=== PATIENT | male | born 1995 | race Caucasian/White ===

== ENCOUNTER 2020-01-16 09:56 | Outpatient (CLI) | payer OTHER, SELFPAY | END 2020-01-16 09:57 | disposition home or self-care (01) | LOC: ANHBWCLAB 09:59 | PROVIDERS: PCP Family Medicine; Visit Provider Family Medicine | DX: R19.8 Other specified symptoms and signs involving the digestive system and abdomen (principal) | CPT/HCPCS: 87070; 87075; 87076; 87205 ==

== ENCOUNTER 2021-12-30 08:00 | Outpatient (CLI) | payer OTHER, SELFPAY ==
[2021-12-30 20:08] LABS: Hematocrit 43.6 % (42.0-52.0); Hemoglobin 14.5 g/dL (14.0-18.0); Mean Corpuscular HGB Conc 33.3 g/dl (32-36); Mean Corpuscular Hemoglobin 28.7 pg (26-34); Mean Corpuscular Volume 86.3 fl (80-100); Mean Platelet Volume 10.9 fl (7.4-10.4); Platelet Count Result 288 k/mm3 (150-375); Red Blood Count 5.05 M/mm3 (4.6-6.20); Red Cell Distribution Width 13.8 % (11.5-14.5); White Blood Count 10.9 K/mm3 (4.5-10.0)
[2021-12-30 20:23] LABS: Alanine Aminotransferase 26 U/L (4-50); Albumin Level 4.6 g/dL (3.5-5.1); Alkaline Phosphatase 102 U/L (38-126); Anion Gap 6 mmol/L (8-16); Aspartate Amino Transferase 28 U/L (17-59); Bilirubin,Total 0.5 mg/dL (0.2-1.3); Blood Urea Nitrogen 14 mg/dL (9-20); Calcium 9.8 mg/dL (8.4-10.2); Carbon Dioxide 26 mmol/L (22-30); Chloride 104 mmol/L (98-107); Cholesterol 175 mg/dL (0-200); Estimated Glomerular Filt Rate > 60; Glucose 110 mg/dL (65-110); HDL Direct 47 mg/dL; Potassium 4.2 mmol/L (3.4-5.0); Sodium 136 mmol/L (137-145); Triglycerides 150 mg/dL (<150)
[2021-12-30 20:34] LABS: LDL Cholesterol Direct 102 mg/dL
[2021-12-30 20:41] LABS: Hemoglobin A1C 5.5 % (<5.7)
== END 2021-12-30 08:01 | disposition home or self-care (01) ==
PROVIDERS: PCP Family Medicine; Visit Provider Family Medicine
DX: Z00.00 Encounter for general adult medical examination without abnormal findings (principal); E66.9 Obesity, unspecified
CPT/HCPCS: 36415; 80053; 80061; 83036; 85027

== ENCOUNTER 2022-09-15 17:26 | Emergency (ER) | payer BC, SELFPAY ==
[2022-09-15 17:32] VITALS: BP 160/92; PULSE 112; RESP 16; TEMP 37.4; O2SAT 98
--- NOTE | 2022-09-15 17:39 | ED.NAVMDI ---
HPI - Nausea/Vomiting/Diarrhea General Chief complaint: Nausea/Vomiting/Diarrhea Stated complaint: diarrhea, abdominal cramps, indigestion Time Seen by Provider: 09/15/22 17:30 Source: patient and RN notes reviewed Mode of arrival: ambulatory Limitations: no limitations History of Present Illness HPI Narrative: 27-year-old male presents concern for diarrhea. He reports diarrhea started yesterday. Reports stomach cramping with diarrhea. Reports less diarrhea stools a day. Reports some nausea without vomiting. He reports belching and indigestion. He denies fever, bodies, chills, sweats. He denies bloody diarrhea MD elicited complaint: nausea and diarrhea Related Data Allergies Allergy/AdvReac Type Severity Reaction Status Date / Time No Known Drug Allergies Allergy Unknown Unknown Verified 09/15/22 17:41 Review of Systems Review of Systems: CONSTITUTIONAL: Reports malaise. Denies chills, sweats, or fever. ENT: Denies rhinorrhea, congestion, sinus pain, otalgia or sore throat. CARDIOVASCULAR: Denies chest pain, palpitations, or edema. RESPIRATORY: Denies cough or dyspnea. GASTROINTESTINAL: Denies abdominal pain, vomiting Reports abdominal cramping, nausea, diarrhea. Denies bloody, or mucous stools. GENITOURINARY: Denies dysuria or hematuria. MUSCULOSKELETAL: Denies myalgia. NEUROLOGIC: Denies headache. All systems reviewed & are unremarkable except as noted in HPI and below PMFSH Family History Family History Grandparent Diabetes mellitus Acute myocardial infarction Family history of malignant neoplasm Mother Family history of bipolar disorder Social History Social History (Updated 01/16/20 @ 09:18 by Vannessa Bean [facility]) Smoking packs per day: 0.5 Smoking cigarettes per day: 10.0 Years smoked: 11 Smoking pack-years: 5.50 Smoking status: Current every day smoker Second hand tobacco smoke exposure: Yes Alcohol intake: never Substance use: never Comments At time of signature, agree with nursing past medical, surgical, social and family history. There is no relevant family history pertinent to the presenting complaint Exam Narrative: GENERAL: Well-appearing, well-nourished, and in no acute distress. HEAD: Normocephalic, atraumatic. EYES: PERRLA, conjunctivae clear, and EOMI. ENT: Mucous membranes moist. NECK: Supple. No lymphadenopathy CHEST: Speaks in full sentences. No respiratory distress. HEART: Regular rate and rhythm. ABDOMEN: Obese, nontender SKIN: Warm, dry, no rash. NEURO: Alert and oriented x3. PSYCH: Normal mood and affect Course Course Emergency Course: Patient is aware of diagnosis, understands and agrees to treatment plan. Anticipatory guidance given. Patient agrees to follow-up as directed and is aware of reasons to seek care at the emergency department. Portions of this record may have been created with voice recognition software Level of Care: Express Care Visit Vital Signs Vital signs: Vital Signs Temperature 99.3 F 09/15/22 17:32 Pulse Rate 112 H 09/15/22 17:32 Respiratory Rate 16 09/15/22 17:32 Blood Pressure 160/92 H 09/15/22 17:32 Pulse Oximetry 98 09/15/22 17:32 Oxygen Delivery Room Air 09/15/22 17:32 Temperature 99.3 F 09/15/22 17:32 Pulse Rate 112 H 09/15/22 17:32 Respiratory Rate 16 09/15/22 17:32 Blood Pressure 160/92 H 09/15/22 17:32 Pulse Oximetry 98 09/15/22 17:32 Oxygen Delivery Room Air 09/15/22 17:32 Reviewed. MDM - Nausea/Vomiting/Diarrhea MDM Narrative Medical decision making narrative: Exam findings show no acute concerns or changes; patient is non-toxic appearing and is in no distress. Patient is appropriate for outpatient treatment and follow-up. Differential Diagnosis Differential diagnosis: Likely traveler's diarrhea, food poisoning, gastroenteritis, clostridium difficile infection and dehydration Critical Care Time Critical Car
== END 2022-09-15 17:32 | disposition home or self-care (01) ==
PROVIDERS: Emergency Provider Nurse Practitioner; PCP Family Medicine
DX: R19.7 Diarrhea, unspecified (principal); F17.210 Nicotine dependence, cigarettes, uncomplicated
CPT/HCPCS: 99213; G0463

== ENCOUNTER 2023-12-08 10:36 | Outpatient (CLI) | payer OTHER, SELFPAY ==
[2023-12-08 19:36] LABS: Hematocrit 43.6 % (42.0-52.0); Hemoglobin 14.3 g/dL (14.0-18.0); Mean Corpuscular HGB Conc 32.8 g/dl (32-36); Mean Corpuscular Hemoglobin 28.4 pg (26-34); Mean Corpuscular Volume 86.7 fl (80-100); Mean Platelet Volume 10.9 fl (7.4-10.4); Platelet Count Result 268 k/mm3 (150-375); Red Blood Count 5.03 M/mm3 (4.6-6.20); Red Cell Distribution Width 13.5 % (11.5-14.5); White Blood Count 11.6 K/mm3 (4.5-10.0)
[2023-12-08 19:43] LABS: Alanine Aminotransferase 25 U/L (6-50); Albumin Level 3.8 g/dL (3.5-5.1); Alkaline Phosphatase 96 U/L (38-126); Anion Gap 5 mmol/L (8-16); Aspartate Amino Transferase 37 U/L (17-59); Bilirubin,Total 0.3 mg/dL (0.2-1.3); Blood Urea Nitrogen 10 mg/dL (9-20); Calcium 8.9 mg/dL (8.4-10.2); Carbon Dioxide 28 mmol/L (22-30); Chloride 105 mmol/L (98-107); Cholesterol 163 mg/dL (0-200); Estimated Glomerular Filt Rate > 60; Glucose 97 mg/dL (65-110); HDL Direct 47 mg/dL; Potassium 4.2 mmol/L (3.4-5.0); Sodium 138 mmol/L (137-145); Triglycerides 147 mg/dL (<150)
[2023-12-08 19:55] LABS: LDL Cholesterol Direct 95 mg/dL
[2023-12-08 20:52] LABS: Hemoglobin A1C 5.5 % (<5.7)
== END 2023-12-08 10:37 | disposition home or self-care (01) ==
PROVIDERS: PCP Nurse Practitioner Adult Health; Visit Provider Nurse Practitioner Adult Health
DX: Z13.9 Encounter for screening, unspecified (principal); Z79.899 Other long term (current) drug therapy; J01.00 Acute maxillary sinusitis, unspecified; E66.9 Obesity, unspecified; R19.8 Other specified symptoms and signs involving the digestive system and abdomen
CPT/HCPCS: 36415; 80053; 80061; 83036; 84443; 85027

== ENCOUNTER 2024-07-05 10:19 | Outpatient (CLI) | payer OTHER, SELFPAY ==
[2024-07-05 19:37] LABS: Basophils Absolute Auto 0.1 K/mm3 (0.0-0.1); Basophils Percent Auto 0.9 % (0.2-1.2); Eosinophils Absolute Auto 0.4 K/mm3 (0-0.3); Eosinophils Percent Auto 3.4 % (0-4.4); Hematocrit 44.4 % (42.0-52.0); Hemoglobin 14.6 g/dL (14.0-18.0); Immature Granulocyte Absolute 0.04 K/mm3 (0.00-0.031); Immature Granulocyte Percent A 0.4 % (0-0.5); Lymphocytes Percent Auto 30.9 % (18.3-44.2); Mean Corpuscular HGB Conc 32.9 g/dl (32-36); Mean Corpuscular Hemoglobin 28.9 pg (26-34); Mean Corpuscular Volume 87.9 fl (80-100); Monocytes Absolute Auto 0.8 K/mm3 (0.1-0.6); Neutrophils Absolute Auto 6.5 K/mm3 (1.3-6.7); Neutrophils Percent Auto 57.4 % (45.5-73.1); Platelet Count Result 285 k/mm3 (150-375); Red Blood Count 5.05 M/mm3 (4.6-6.20); Red Cell Distribution Width 14.4 % (11.5-14.5); White Blood Count 11.3 K/mm3 (4.5-10.0)
[2024-07-05 19:53] LABS: Alanine Aminotransferase 24 U/L (6-50); Albumin Level 4.5 g/dL (3.5-5.1); Alkaline Phosphatase 88 U/L (38-126); Anion Gap 12 mmol/L (4-12); Aspartate Amino Transferase 55 U/L (17-59); Bilirubin,Total 0.3 mg/dL (0.2-1.3); Blood Urea Nitrogen 17 mg/dL (9-20); Calcium 9.9 mg/dL (8.4-10.2); Carbon Dioxide 26 mmol/L (22-30); Chloride 99 mmol/L (98-107); Cholesterol 184 mg/dL (0-200); Estimated Glomerular Filt Rate > 60; Glucose 98 mg/dL (65-110); HDL Direct 50 mg/dL; Potassium 4.6 mmol/L (3.4-5.0); Sodium 137 mmol/L (137-145); Triglycerides 178 mg/dL (<150)
[2024-07-05 20:05] LABS: LDL Cholesterol Direct 102 mg/dL
[2024-07-05 20:07] LABS: Hemoglobin A1C 5.7 % (<5.7)
[2024-07-05 20:11] LABS: Free T4 Free Thyroxine 1.01 ng/mL (0.78-2.19)
== END 2024-07-05 10:20 | disposition home or self-care (01) ==
PROVIDERS: PCP Nurse Practitioner Adult Health; Visit Provider Nurse Practitioner Adult Health
DX: Z13.9 Encounter for screening, unspecified (principal)
CPT/HCPCS: 36415; 80053; 80061; 83036; 84439; 84443; 85025

== ENCOUNTER 2024-09-20 10:24 | Outpatient (CLI) | payer OTHER, SELFPAY | END 2024-09-20 10:25 | disposition home or self-care (01) | LOC: ANHBWCLAB 10:25 | PROVIDERS: PCP Nurse Practitioner Adult Health; Visit Provider Nurse Practitioner Adult Health | DX: R20.2 Paresthesia of skin (principal) | CPT/HCPCS: 36415; 82607 ==

== ENCOUNTER 2025-08-28 07:56 | Outpatient (CLI) | payer BC, SELFPAY ==
--- OUTSIDE RECORDS SUMMARY | 2025-08-28 08:05 | XMS_ITS | Clinical Summary ---
Author Organization [facility] Address [address] [place] [address] Care Team Providers Care Car Painter Name Role Phone Unavailable Primary Care Provider Unavailabl e Source Comments [facility],non-owned Affiliates and Associated Physician Practices is amultiple site organization consisting of ambulatory clinics and hospital sitesin [place], [place], [place] and [place]. This disclosure is being madepursuant to the Care Everywhere program and may not contain all information available regarding this patient. Last updated 18.[employer] [facility] Allergies No known active allergies Medications * Be aware that medications may not be up to date on this document. Alwaysverify current medications with the patient. cephalexin (KEFLEX) 500 MG capsule Take 1 capsule by mouth 4 times daily 28 capsule 01/26/2019 Active Immunizations Immunization Administration Dates Next Due TDAP (7yrs+) 01/26/2019 Social History Tobacco Use Types Packs/Day Years Used Date Smoking Tobacco: Every Day Cigarettes Alcohol Use Standard Drinks/Week Comments Yes 0 (1 standard drink = 0.6 oz pur e alcohol) Xiang Sex and Gender Information Value Date Recorded Sex Assigned at Not on file Legal Sex Male 5:35 AM COLLECTIONS DIRECTOR Gender Identity Not on file Sexual Orientation Not on file Last Filed Vital Signs Vital Sign Reading Time Taken Comments Blood Pressure 150/91 01/26/2019 7:12 AM COLLECTIONS DIRECTOR Pulse 89 01/26/2019 7:12 AM COLLECTIONS DIRECTOR Temperature 36.9 C (98.4 F) 01/26/2019 7:12 AM COLLECTIONS DIRECTOR Respiratory Rate 18 01/26/2019 7:12 AM COLLECTIONS DIRECTOR Oxygen Saturation 97% 01/26/2019 7:12 AM COLLECTIONS DIRECTOR Inhaled Oxygen Concentration - - Weight 158.8 kg (350 lb) 01/26/2019 7:12 AM COLLECTIONS DIRECTOR Height 180.3 cm (5' 11) 01/26/2019 7:12 AM COLLECTIONS DIRECTOR Body Mass Index 48.82 01/26/2019 7:12 AM COLLECTIONS DIRECTOR Plan of Treatment Health Maintenance Due Date Last Done Comments HIV SCREENING 2008 HEPATITIS C SCREENING 01/02/2011 HEPATITIS B VACCINE (1 of 3 - 19+ 3-dose series) 2012 HPV VACCINE (1 - 3-dose SCDM series) 2020 DEPRESSION SCREENING 11/29/2024 COVID-19 VACCINE (1 - 2023-2 5 season) 2025 INFLUENZA VACCINE (#1) 2025 DTAP/TDAP/TD VACCINES (2 - T d or Tdap) 01/26/2029 01/26/2019 ZOSTER VACCINE (1 of 2) 2043 HIB VACCINE Aged Out No longer eligi ble based on patient's age to complete this topic MENINGOCOCCAL (Group B) VACC INE SHARED DECISION-MAKING Aged Out No longer eligibl e based on patient's age to complete this topic MENINGOCOCCAL GROUPS A/C/Y/W VACCINE Aged Out No longer eligible b ased on patient's age to complete this topic PNEUMOCOCCAL VACCINE Aged Out No long er eligible based on patient's age to complete this topic Insurance TP [employer] LIABILITY Republican Liability [employer] PAYOR GENERIC
--- OUTSIDE RECORDS SUMMARY | 2025-08-28 08:05 | XMS_ITS | Clinical Summary ---
Author Organization [facility] Address [address] [place] [address] Care Team Providers Care Marketing Automation Specialist Name Role Phone Juan Yasmin ALLISON Primary Care Provider [phone] Allergies No known active allergies Medications guaiFENesin (ROBITUSSIN) syrup 100 mg/5 mL Take 5-10 mL (100-200 mg total) by mouth every 4 (four) hours as needed for cough 60 mL 4 Active Additional Information Patient not taking.Reported on 03/28/2025 albuterol HFA (PROVENTIL HFA,VENTOLIN HFA,PROAIR HFA) 90 mcg/actuation inhaler Inhale 2 puffs every 4 (four) hours as needed for wheezing 18 g 1 4 Active lisinopriL (PRINIVIL,ZESTR IL) 20 mg tablet Take 1 tablet (20 mg total) by mouth daily 4 Active Active Problems Problem Noted Date Diagnosed Date Enlargement of neck 03/26/2016 Overview (03/04/2017): Fullness of neck Morbid obesity 03/06/2016 Overview (03/05/2017): Obesity, morbid, BMI 40.0-49.9 Abscess of buttock 04/14/2014 Overview (03/05/2017): Gluteal abscess Tic 04/14/2014 Overview (03/05/2017): Tic Adjustment disorder with anxious mood 04/14/2014 Overview (03/05/2017): ADJ REACT-ANXIOUS MOOD Encounters Date Type Department Care Team Description 06/04/2025 12:09 AM CDT - 06/04/2025 1:00 AM CDT Emergency [facility] Emergency Department [address] [place] [address] Demi Koeing MD Foreign body in left foot, initial encounter (Primary Dx) Discharge Disposition: Discharge to home or self care from Last 3 Months Immunizations Immunization Administration Dates Next Due Tdap 06/04/2025 Surgical History Surgery Date Site/Laterality Comments TONSILLECTOMY Tonsillectomy Medical History Medical History Date Comments Hx Other Medical 2006 dental surgery Family History Medical History Relation Name Comments Migraines Father 2 Migraine; Other Father 2 Healthy; Other Mother 2 Healthy; Cancer Other Family history of Cancer; Diabetes Other Family history of Diabetes mellitus; Relation Name Status Comments Father 1 Alive Father 2 Mother 1 Alive Mother 2 Other Social History Tobacco Use Types Packs/Day Years Used Date Smoking Tobacco: Former Cigarettes Q uit: 01/28/2024 Tobacco Cessation:Counseling Given: Not Answered Comments:Smoking History Packs/day: 1 Packs Alcohol Use Standard Drinks/Week Comments Not Currently 0 (1 standard drink = 0.6 oz pur e alcohol) Personal Safety Answer Date Recorded Have you ever been in or are you currently in a harmful physical or emotional relationship or is someone making you feel afraid or unsafe? Denies 06/04/2025 Sex and Gender Information Value Date Recorded Sex Assigned at Not on file Legal Sex Male 9:45 AM RESIDENT SERVICES MANAGER Gender Identity Not on file Sexual Orientation Not on file Obstetrics History Last Filed Vital Signs Vital Sign Reading Time Taken Comments Blood Pressure 160/91 06/04/2025 12:07 AM CDT Pulse 78 06/04/2025 12:06 AM CDT Temperature 36.3 C (97.4 F) 06/04/2025 12:06 AM CDT Respiratory Rate 18 06/04/2025 12:06 AM CDT Oxygen Saturation 96% 06/04/2025 12:07 AM CDT Inhaled Oxygen Concentration - - Weight 167.8 kg (370 lb) 06/04/2025 12:06 AM CDT Height 182.9 cm (6') 06/04/2025 12:06 AM CDT Body Mass Index 50.18 06/04/2025 12:06 AM CDT Plan of Treatment Health Maintenance Due Date Last Done Comments Depression Screening 1993 Hepatitis C Screening 1993 Varicella Vaccines (2 of 2 - 2-dose childhood series) 08/15/1998 05/23/1998 Regular Well Visit/Exam 18-64 2011 HPV Vaccines (1 - 3-dose SCDM series) 2020 Influenza Vaccine (#1) 2025 DTaP/Tdap/Td Vaccine (8 - Td or Tdap) 06/04/2035 06/04/2025, 01/26/2019, 11/19/1997, Additional history exists Hepatitis B Screening Completed 1993 , 1995, 1995 Pneumococcal vaccine <65 Aged Out No longer eligible based on patient's age to complete this topic Procedures Procedure Name Priority Date/Time Associated Diagnosis Comments XR FOOT LEFT 2 VIEWS ED 06/04/2025 12:41 AM CDT [place] REMOVAL FOREIGN BODY FOOT SUBCUTANEOUS Routine 06/04/2025 12:39 AM CDT from Last 3 Months Results * XR Foot Left 2 Views (06/04/2025 12:41 AM CDT) Anatomical Region Laterality Modality Lower Extremities, Foot Left Computed Radiography 06/04/2025 12:4 8 AM CDT Narrative 06/04/2025 12:53 AM CDT EXAM DESCRIPTION: XR FOOT LEFT 2 VIEWS REASON FOR STUDY: foriegn body Post Images - ER Dr. Koenig removed object from foot Tonight in ER. C/o foreign body in L foot. Pt was walking in his living room and stepped on an unknown FO Tonight. Unsuccessful at removing himself at home. TECHNIQUE: 2 radiographic view(s) of the left foot . COMPARISON: None FINDINGS: BONES/JOINTS: There is no acute fracture, malalignment or osseous abnormality. The joint spaces are normal. SOFT TISSUES: Within normal limits. IMPRESSION: No acute osseous abnormality. No radiopaque foreign body is seen. THIS IS AN ELECTRONICALLY VERIFIED FINAL REPORT 06/04/2025 12:53 AM - Electronically signed by Herson CARRERO: MAGAN Report ID: [id number] Reading Location: [id number] Procedure Note Herson Boyd MD - 06/04/2025 EXAM DESCRIPTION: XR FOOT LEFT 2 VIEWS REASON FOR STUDY: foriegn body Post Images - ER Dr. Koenig removed object from foot Tonight in ER. C/o foreign body in L foot. Pt was walking in his living room and stepped anahi unknown FO Tonight. Unsuccessful at removing himself at home. TECHNIQUE: 2 radiographic view(s) of the left foot . COMPARISON: None FINDINGS: BONES/JOINTS: There is no acute fracture, malalignment or osseousabnormality. The joint spaces are normal. SOFT TISSUES: Within normal limits. IMPRESSION: No acute osseous abnormality. No radiopaque foreign body is seen. THIS IS AN ELECTRONICALLY VERIFIED FINAL REPORT 06/04/2025 12:53 AM - Electronically signed by Herson Boyd M.D. KH: MAGAN Report ID: [id number] Reading Location: [id number] Demi Koenig MD IMG XR PROCEDURES Final Result * WA REMOVAL FOREIGN BODY FOOT SUBCUTANEOUS (06/04/2025 12:39 AM CDT) Narrative Demi Koenig MD - 06/04/2025 12:39 AM CDT Demi Koenig MD 06/04/2025 12:44 AM Foreign Body Removal Date/Time: 06/04/2025 12:39 AM Performed by: Demi Koenig MD Authorized by: Demi Koenig MD [place] Protocol: RN Notified of Procedure: yes Informed consent: Risks, benefits, alternatives discussed Patient's stated name/ matches armband: Yes and patient unable to verbalize - armband matched to name and within medical record Allergies confirmed: yes Consent form signed, dated, timed; matches correct patient, intended procedure and site: Yes Location: Location: Foot Foot location: L top foot (left lateral foot) Depth: Subcutaneous Tendon involvement: None Pre-procedure details: Imaging: None Neurovascular status: intact Preparation: Patient was prepped and draped in usual sterile fashion Anesthesia (see MAR for exact dosages): Anesthesia method: Local infiltration Local anesthetic: Lidocaine 1% WITH epi Procedure type: Procedure complexity: Simple Procedure details: Scalpel size: 10 (no scalpel used) Localization method: Visualized Dissection of underlying tissues: no Bloodless field: no Foreign bodies recovered: 1 Intact foreign body removal: yes Post-procedure details: Neurovascular status: intact Confirmation: No additional foreign bodies on visualization Skin closure: None Dressing: Open (no dressing) Patient tolerance of procedure: Tolerated well, no immediate complications Demi Koenig MD IN CLINIC/BEDSIDE ORDERABLES Fin al Result from Last 3 Months Insurance [facility] Care Teams Marketing Automation Specialist Relationship Specialty Start Date End Date Yasmin Martinez NP [address] [place] [id number] PCP - General Nurse Practitioner 09/14/24
[2025-08-28 19:17] LABS: Hematocrit 43.8 % (42.0-52.0); Hemoglobin 14.0 g/dL (14.0-18.0); Immature Granulocyte Percent A 0.3 % (0-0.5); Lymphocytes Absolute Auto 3.45 K/mm3 (0.9-3.2); Mean Corpuscular HGB Conc 32.0 g/dl (32-36); Mean Corpuscular Hemoglobin 28.0 pg (26-34); Mean Corpuscular Volume 87.6 fl (80-100); Nucleated Red Blood Cells Absolute Auto 0.000 K/mm3 (0.0-0.012); Nucleated Red Blood Cells Perc 0.0 % (0.0-0.2); Platelet Count Result 302 k/mm3 (150-375); Red Blood Count 5.00 M/mm3 (4.6-6.20); White Blood Count 12.0 K/mm3 (4.5-10.0)
[2025-08-28 19:49] LABS: Alanine Aminotransferase 28 U/L (6-50); Albumin Level 4.6 g/dL (3.5-5.1); Alkaline Phosphatase 99 U/L (38-126); Anion Gap 10 mmol/L (4-12); Aspartate Amino Transferase 64 U/L (17-59); Bilirubin,Total 0.4 mg/dL (0.2-1.3); Blood Urea Nitrogen 18 mg/dL (9-20); Calcium 9.6 mg/dL (8.4-10.2); Carbon Dioxide 25 mmol/L (22-30); Chloride 101 mmol/L (98-107); Cholesterol 192 mg/dL (0-200); Estimated Glomerular Filt Rate > 60; Glucose 83 mg/dL (65-110); HDL Direct 53 mg/dL; Potassium 4.7 mmol/L (3.4-5.0); Sodium 136 mmol/L (137-145); Total Protein 7.8 g/dL (6.3-8.2); Triglycerides 117 mg/dL (<150)
[2025-08-28 19:57] LABS: Troponin I < 0.012 ng/mL (0.000-0.034)
== END 2025-08-28 07:57 | disposition home or self-care (01) ==
LOC: ANHBWCLAB 07:57
PROVIDERS: PCP Family Medicine; Visit Provider Family Medicine
DX: Z00.00 Encounter for general adult medical examination without abnormal findings (principal); F41.9 Anxiety disorder, unspecified; F32.A Depression, unspecified; I10 Essential (primary) hypertension; E66.9 Obesity, unspecified; R20.2 Paresthesia of skin; R42 Dizziness and giddiness; Z84.81 Family history of carrier of genetic disease
CPT/HCPCS: 36415; 80053; 80061; 82172; 84484; 85025

== ENCOUNTER 2025-09-05 11:13 | Outpatient (CLI) | payer BC, SELFPAY ==
--- NOTE | ~2025-09-05 | XR_ITS ---
XR_[id number]_CR Indication: R07.9 - Chest pain, unspecified, NUMBNESS TO ARMS Comparison: None Findings: The vertebral heights are intact. No fracture or subluxation. The disc heights are intact. Soft tissues unremarkable Impression: No acute abnormality. Reviewed, dictated and finalized at location P. Impression: No acute abnormality.
--- NOTE | 2025-09-05 11:33 | ECG_ITS ---
Test Date: 2025-09-05 11:46:57 Measurements Intervals [place] Rate: 102 P: 21 NJ: 139 QRS: 20 QRSD: 94 T: 29 QT: 311 QTc: 405 Interpretive Statements SINUS TACHYCARDIA DELAYED PRECORDIAL R/S TRANSITION BORDERLINE ECG No previous ECG available for comparison Electronically Signed On 09-05-2025 12:26:49 CDT by González Potts D.O.
== END 2025-09-05 11:14 | disposition home or self-care (01) ==
LOC: ANHCARD 11:20
PROVIDERS: PCP Family Medicine; Visit Provider Family Medicine
DX: R94.31 Abnormal electrocardiogram [ECG] [EKG] (principal); R00.2 Palpitations; R07.9 Chest pain, unspecified; M54.2 Cervicalgia
CPT/HCPCS: 72040; 93005

== ENCOUNTER 2025-10-01 09:27 | Outpatient (CLI) | payer BC, SELFPAY ==
--- NOTE | 2025-10-01 09:55 | EST_ITS ---
Patient Info Name: Kieran Mueller Age: 30 years : 1995 Gender: Male Ht: 72 in Wt: 400 lbs BSA: 3.14 m2 HR: 62 bpm BP: 146 / 72 mmHg Exam Date: 10/01/2025 9:55 AM Patient Status: O Admit Date: 10/01/2025 Exam Type: CA stress test treadmill A treadmill exercise stress test was performed. Staff Attending Provider: González Potts DO Exercise Technologist: Keyla Martinez Exercise Physician: González Potts DO Summary 1. 1. Negative Matt exercise stress test for ischemic ST changes by ECG criteria. 2. 2. Reduced functional capacity, achieving 5.7 METs of workload. 3. 3. Baseline hypertension. 4. 4. Rapid HR response to exercise. 5. 5. Appropriate HR recovery at 1 minute post exercise. 6. 6. No imaging with stress testing. 7. 7. Patient informed of the above results. Protocol: Matt Stress ECG Details Stage: REST Duration (min): 0 min : 59 sec Speed (mph): 0.0 Grade (%): 0 HR (bpm): 61 SBP (mmHg): 146 DBP (mmHg): 72 METS: --- Stage: REST Duration (min): 3 min : 12 sec Speed (mph): 0.0 Grade (%): 0 HR (bpm): 83 SBP (mmHg): 146 DBP (mmHg): 72 METS: --- Stage: STAGE 1 Duration (min): 1 min : 0 sec Speed (mph): 1.7 Grade (%): 10 HR (bpm): 140 SBP (mmHg): 146 DBP (mmHg): 72 METS: --- Stage: STAGE 1 Duration (min): 2 min : 0 sec Speed (mph): 1.7 Grade (%): 10 HR (bpm): 154 SBP (mmHg): 146 DBP (mmHg): 72 METS: --- Stage: STAGE 1 Duration (min): 3 min : 0 sec Speed (mph): 1.7 Grade (%): 10 HR (bpm): 163 SBP (mmHg): 145 DBP (mmHg): 88 METS: --- Stage: STAGE 2 Duration (min): 0 min : 30 sec Speed (mph): 2.5 Grade (%): 12 HR (bpm): 157 SBP (mmHg): 145 DBP (mmHg): 88 METS: --- Stage: RECOVERY Duration (min): 0 min : 29 sec Speed (mph): 0.0 Grade (%): 0 HR (bpm): 168 SBP (mmHg): 145 DBP (mmHg): 88 METS: --- Stage: RECOVERY Duration (min): 1 min : 29 sec Speed (mph): 0.0 Grade (%): 0 HR (bpm): 137 SBP (mmHg): 145 DBP (mmHg): 88 METS: --- Stage: RECOVERY Duration (min): 2 min : 29 sec Speed (mph): 0.0 Grade (%): 0 HR (bpm): 125 SBP (mmHg): 145 DBP (mmHg): 88 METS: --- Stage: RECOVERY Duration (min): 3 min : 29 sec Speed (mph): 0.0 Grade (%): 0 HR (bpm): 121 SBP (mmHg): 174 DBP (mmHg): 77 METS: --- Stage: RECOVERY Duration (min): 4 min : 29 sec Speed (mph): 0.0 Grade (%): 0 HR (bpm): 101 SBP (mmHg): 174 DBP (mmHg): 77 METS: --- Stage: RECOVERY Duration (min): 5 min : 29 sec Speed (mph): 0.0 Grade (%): 0 HR (bpm): 108 SBP (mmHg): 179 DBP (mmHg): 73 METS: --- Stage: RECOVERY Duration (min): 6 min : 29 sec Speed (mph): 0.0 Grade (%): 0 HR (bpm): 104 SBP (mmHg): 179 DBP (mmHg): 73 METS: --- Stage: RECOVERY Duration (min): 7 min : 29 sec Speed (mph): 0.0 Grade (%): 0 HR (bpm): 103 SBP (mmHg): 159 DBP (mmHg): 76 METS: --- Stage: RECOVERY Duration (min): 8 min : 29 sec Speed (mph): 0.0 Grade (%): 0 HR (bpm): 115 SBP (mmHg): 159 DBP (mmHg): 76 METS: --- Stage: RECOVERY Duration (min): 9 min : 5 sec Speed (mph): 0.0 Grade (%): 0 HR (bpm): 120 SBP (mmHg): 122 DBP (mmHg): 76 METS: --- Rest HR: 83 bpm Peak HR: 170 bpm Rest Sys BP: 146 mmHg Peak Sys BP: 179 mmHg Max Pred HR: 188 bpm % Max Pred HR: 90 % Target HR: 160 bpm Max RPP: 30,430 bpm*mmHg Soler Score: -6 Termination Reason: Reached target heart rate or workload Cardiac Symptoms: Shortness of breath Max ST Seg Deviation: 1.90 mm Total Time: 3 min : 30 sec Rest Sims BP: 72 mmHg Peak Sims BP: 73 mmHg Angina Score: None Total METS: 5.6 Resting ECG Sinus rhythm. Stress ECG No ST changes. Arrhythmias None. Report Signatures
--- OUTSIDE RECORDS SUMMARY | 2025-10-01 10:13 | XMS_ITS | Clinical Summary ---
Author Organization [facility] [employer] Address [address] [place] [address] Care Team Providers Care Head Mixer Name Role Phone Unavailable Primary Care Provider Unavailabl e Source Comments [facility] [employer],non-[facility] Affiliates and Associated Physician Practices is amultiple site organization consisting of ambulatory clinics and hospital sitesin [place], [place], [place] and [place]. This disclosure is being madepursuant to the Care Everywhere program and may not contain all information available regarding this patient. Last updated 18.[employer] Allergies No known active allergies Medications * [...] on file Legal Sex Male 5:35 AM RUG FRAME MOUNTER Gender Identity Not on file Sexual Orientation Not on file Last Filed Vital Signs Vital Sign Reading Time Taken Comments Blood Pressure 150/91 01/26/2019 7:12 AM RUG FRAME MOUNTER Pulse 89 01/26/2019 7:12 AM RUG FRAME MOUNTER Temperature 36.9 C (98.4 F) 01/26/2019 7:12 AM RUG FRAME MOUNTER Respiratory Rate 18 01/26/2019 7:12 AM RUG FRAME MOUNTER Oxygen Saturation 97% 01/26/2019 7:12 AM RUG FRAME MOUNTER Inhaled Oxygen Concentration - - Weight 158.8 kg (350 lb) 01/26/2019 7:12 AM RUG FRAME MOUNTER Height 180.3 cm (5' 11) 01/26/2019 7:12 AM RUG FRAME MOUNTER Body Mass Index 48.82 01/26/2019 7:12 AM RUG FRAME MOUNTER Plan of Treatment Health Maintenance Due Date [...] to complete this topic Insurance TP [employer] [place] [employer] Republican Liability [employer] PAYOR GENERIC
--- OUTSIDE RECORDS SUMMARY | 2025-10-01 10:13 | XMS_ITS | Clinical Summary ---
Author Organization [facility] Address [address] [place] [address] Care Team Providers Care Projector Operator Name Role Phone Yasmin Martinez NP Primary Care Provider [phone] Allergies No known active allergies Medications guaiFENesin [...] Encounters Date Type Department Care Team Description 09/04/2025 10:43 AM CDT - 09/04/2025 11:48 AM CDT Emergency [facility] Emergency Department [address] [place] [address] Chest pain, unspecified type (Primary Dx); Acute pain of left shoulder Discharge Disposition: Discharge to home or self [...] making you feel afraid or unsafe? 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[employer] Gender Identity Not on file Sexual Orientation Not on file Last Filed Vital Signs Vital Sign Reading Time Taken Comments Blood Pressure 136/77 09/04/2025 10:37 AM CDT Pulse 84 09/04/2025 10:37 AM CDT Temperature 36.9 C (98.5 F) 09/04/2025 8:20 AM CDT Respiratory Rate 16 09/04/2025 10:37 AM CDT Oxygen Saturation 97% 09/04/2025 10:37 AM CDT Inhaled Oxygen Concentration - - [...] Procedure Name Priority Date/Time Associated Diagnosis Comments TROPONIN T HIGH-SENSITIVITY 2-HOUR Timed 09/04/2025 10:47 AM CDT XR SHOULDER LEFT 2 OR MORE VIEWS ED 09/04/2025 9:50 AM CDT XR CHEST 1 VIEW ED 09/04/2025 9:50 AM CDT EGFR STAT 09/04/2025 8:26 AM CDT DIFFERENTIAL AUTO STAT 09/04/2025 8:2 6 AM CDT MAGNESIUM STAT 09/04/2025 8:26 AM CDT THYROID FUNCTION CASCADE Routine 09/04/2025 8:26 AM CDT TROPONIN T HIGH-SENSITIVITY SERIES (BASELINE, 2HR, 4HR, 6HR) STAT 09/04/2025 8:26 AM CDT COMPREHENSIVE METABOLIC PANEL STAT 09/04/2025 8:26 AM CDT CBC WITH AUTO DIFFERENTIAL STAT 09/04/2025 8:26 AM CDT ECG 12-LEAD STAT 09/04/2025 8:21 AM CDT from Last 3 Months Results * Troponin T high-sensitivity 2-hour (09/04/2025 10:47 AM CDT) Trop T hs <6 <=22 ng/L [facility] ([place]) Comment: Interpretive Data For further hscTnT resources including the diagnostic algorithm and an aid in interpretation, copy and paste this link: https://nrl.testcatalog.org/show/hsTrop Current Interpretive Data last revised 2020. Trop T hs delta 0 ng/L [facility] ([place]) Trop T hs interp Insignificant [facility] ([place]) Blood 09/04/2025 10:4 7 AM CDT 09/04/2025 10:50 AM CDT Naty Yan MD LAB BLOOD ORDERABLES Amanda l Result [facility] ([place]) 1 [facility] [place] [address] * XR Chest 1 Vw Portable (If patient hemodynamically UNstable or UNable to ambulate) (09/04/2025 9:50AM CDT) Anatomical Region Laterality Modality Body, Chest N/A Computed Radiogr aphy 09/04/2025 9:56 AM CDT Narrative 09/04/2025 9:57 AM CDT EXAM DESCRIPTION: XR CHEST 1 VIEW REASON FOR STUDY: chest pain Pt ED via POV. 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 COMPARISON: 09/14/2024 FINDINGS: The heart, mediastinum, and pulmonary vasculature are grossly unremarkable. There is no definite evidence of a pneumothorax. There is no definite evidence of focal consolidation or pleural effusion. The osseous structures are acutely grossly stable. IMPRESSION: 1. No acute cardiopulmonary abnormality. THIS IS AN ELECTRONICALLY VERIFIED FINAL REPORT 09/04/2025 9:57 AM - Electronically signed by Arlen Wing D.O. PS: PS Report ID: [id number] Reading Location: [id number] Procedure Note Arlen Wing, DO - 09/04/2025 EXAM DESCRIPTION: XR CHEST 1 VIEW REASON FOR STUDY: chest pain Pt ED via POV. 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 COMPARISON: 09/14/2024 FINDINGS: The heart, mediastinum, and pulmonary vasculature are grosslyunremarkable. There is no definite evidence of a pneumothorax. There is no definite evidence of focal consolidation or pleural effusion. The osseous structures are acutely grossly stable. IMPRESSION: 1. No acute cardiopulmonary abnormality. THIS IS AN ELECTRONICALLY VERIFIED FINAL REPORT 09/04/2025 9:57 AM - Electronically signed by Arlen Wing D.O. PS: PS Report ID: [id number] Reading Location: [id number] Naty Yan MD IMG XR PROCEDURES Final R esult * XR Shoulder Left 2 or More Views (09/04/2025 9:50 AM CDT) Anatomical Region Laterality Modality Upper Extremities, Shoulder Left Comp uted Radiography 09/04/2025 9:57 AM CDT Narrative 09/04/2025 9:57 AM CDT EXAM DESCRIPTION: XR SHOULDER LEFT 2 OR MORE VIEWS REASON FOR STUDY: pain Pt ED via POV. 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 COMPARISON: None FINDINGS: There is no definite evidence acute displaced fracture or dislocation involving the left shoulder. Of the left acromioclavicular and glenohumeral intervals are grossly well maintained. The visualized soft tissues are grossly unremarkable. IMPRESSION: 1. No definite evidence of acute displaced fracture or dislocation involving the left shoulder. If clinical symptoms persist, then follow-up radiographs in 7-10 days is recommended. THIS IS AN ELECTRONICALLY VERIFIED FINAL REPORT 09/04/2025 9:57 AM - Electronically signed by Arlen Wing D.O. PS: PS Report ID: [id number] Reading Location: [id number] Procedure Note Arlen Wing, DO - 09/04/2025 EXAM DESCRIPTION: XR SHOULDER LEFT 2 OR MORE VIEWS REASON FOR STUDY: pain Pt ED via POV. 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 COMPARISON: None FINDINGS: There is no definite evidence acute displaced fracture or dislocation involving the left shoulder. Of the left acromioclavicular andglenohumeral intervals are grossly well maintained. The visualized soft tissues are grossly unremarkable. IMPRESSION: 1. No definite evidence of acute displaced fracture or dislocationinvolving the left shoulder. If clinical symptoms persist, then follow-upradiographs in 7-10 days is recommended. THIS IS AN ELECTRONICALLY VERIFIED FINAL REPORT 09/04/2025 9:57 AM - Electronically signed by Arlen Wing D.O. PS: PS Report ID: [id number] Reading Location: [place] [address] Thalia FAULKNER IM XR PROCEDURES Final Result * Troponin T high-sensitivity series (baseline, 2hr, 4hr, 6hr) (09/04/2025 8:26 AM CDT) Trop T hs <6 <=22 ng/L [facility] ([place]) Comment: Interpretive Data For further hscTnT resources including the diagnostic algorithm and an aid in interpretation, copy and paste this link: https://nrl.testcatalog.org/show/hsTrop Current Interpretive Data last revised 2020. Blood 09/04/2025 8:26 AM CDT 09/04/2025 8:29 AM CDT Naty Yan MD LAB BLOOD ORDERABLES Amanda l Result Performing Organization Address City/[facility]/ZIP Co de Phone Number [facility] ([place]) 1 [facility] [place] [employer] [address] * eGFR (09/04/2025 8:26 AM CDT) eGFR >90 >=60 mL/min/1. 73 m2 Comment: Interpretive Data Reference Interval Normal >/= 90 mL/min/1.73m2 Mildly decreased* 60 - 89 mL/min/1.73m2 Mildly to moderately decreased 45 - 59 mL/min/1.73m2 Moderately to severely decreased 30 - 44 mL/min/1.73m2 Severely decreased 15 - 29 mL/min/1.73m2 Kidney Failure < 15 mL/min/1.73m2 *Relative to young adult level Estimated glomerular filtration rate is determined by the 2020 CKD-EPI equation recommended by the National Kidney Foundation (A Unifying Approach to GFR Estimation: Recommendations of the NKF-ASK Task Force on Reassessing the Inclusion of Race in Diagnosing Kidney Disease, JASN 202). The CKD-EPI equation should not be used for patients with unstable renal function and has not been validated in children and those over 70. Current interpretive data was last reviewed 2021. Blood 09/04/2025 8:26 AM CDT 09/04/2025 8:29 AM CDT us Naty Yan MD LAB BLOOD ORDERABLES Amanda l Result Performing Organization Address City/[facility]/ZIP Co de Phone Number [facility] ([place]) 1 [facility] Department [employer] [place] [address] * (ABNORMAL) Differential, auto (09/04/2025 8:26 AM CDT) Neutrophil abs 9.09(H) 1.50 - 6.50 K/cumm Imm gran abs 0.05 0.00 - 0.10 K/cumm [facility] ([place]) Lymphocyte abs 3.13 0.80 - 3.30 K/cumm [facility] ([place]) Monocyte abs 0.90(H) 0.20 - 0.80 K/cumm [facility] ([place]) Eosinophil abs 0.23 0.00 - 0.50 K/cumm [facility] ([place]) Basophil abs 0.09 0.00 - 0.10 K/cumm [facility] ([place]) Neutrophil pct 67.3 % [facility] ([place]) Comment: Interpretive Data Percent cell count reference ranges are not reported, since discordance with absolute values may lead to misinterpretation of CBC data. Current Interpretive Data was last revised on 2018. Imm gran pct 0.4 % [facility] ([place]) Comment: Interpretive Data Percent cell count reference ranges are not reported, since discordance with absolute values may lead to misinterpretation of CBC data. Current Interpretive Data was last revised on 2018. Lymphocyte pct 23.2 % [facility] ([place]) Comment: Interpretive Data Percent cell count reference ranges are not reported, since discordance with absolute values may lead to misinterpretation of CBC data. Current Interpretive Data was last revised on 2018. Monocyte pct 6.7 % [facility] ([place]) Comment: Interpretive Data Percent cell count reference ranges are not reported, since discordance with absolute values may lead to misinterpretation of CBC data. Current Interpretive Data was last revised on 2018. Eosinophil pct 1.7 % [facility] ([place]) Comment: Interpretive Data Percent cell count reference ranges are not reported, since discordance with absolute values may lead to misinterpretation of CBC data. Current Interpretive Data was last revised on 2018. Basophil pct 0.7 % [facility] ([place]) Comment: Interpretive Data Percent cell count reference ranges are not reported, since discordance with absolute values may lead to misinterpretation of CBC data. Current Interpretive Data was last revised on 2018. Blood 09/04/2025 8:26 AM CDT 09/04/2025 8:29 AM CDT us Naty Yan MD LAB BLOOD ORDERABLES Amanda l Result [facility] ([place]) 1 [facility] [place] [address] * Thyroid Function [place] (09/04/2025 8:26 AM CDT) TSH 3.03 0.30 - 4.20 mcIUnit/mL [facility] ([place]) Blood 09/04/2025 8:26 AM CDT 09/04/2025 9:57 AM CDT us Thalia FAULKNER LAB BLOOD ORDERABLES Final Resu lt [facility] ([place]) 1 [facility] [place] [address] * (ABNORMAL) CBC with auto differential (09/04/2025 8:26 AM CDT) WBC 13.49(H) 3.80 - 9.90 K/cumm Hgb 14.6 13.0 - 17.5 g/dL [facility] ([place]) Hct 43.4 38.9 - 50.3 % [facility] ([place]) Plt 269 150 - 400 K/cumm [facility] ([place]) MPV 10.3 9.1 - 12.3 fL [facility] ([place]) RBC 5.09 4.30 - 5.80 M/cumm [facility] ([place]) MCV 85.3 81.3 - 96.4 fL [facility] ([place]) MCH 28.7 27.1 - 33.3 pg [facility] ([place]) MCHC 33.6 32.3 - 35.7 g/dL [facility] ([place]) RDW CV 13.1 11.1 - 14.9 % [facility] ([place]) RDW SD 40.4 35.7 - 48.1 fL [facility] ([place]) NRBC abs 0.00 0.00 - 0.01 K/cumm [facility] ([place]) Blood Venous blood specimen / Unknown 09/04/2025 8:26 AM CDT 09/04/2025 8:29 AM CDT Naty Yan MD LAB BLOOD ORDERABLES Amanda l Result [facility] ([place]) 1 [facility] [place] [address] * Magnesium (09/04/2025 8:26 AM CDT) Pathologist [facility] Magnesium 1.9 1.4 - 2.5 mg/dL [facility] ([place]) Blood 09/04/2025 8:26 AM CDT 09/04/2025 9:57 AM CDT Thalia FAULKNER LAB BLOOD ORDERABLES Final Resu lt [facility] ([place]) 1 [facility] [place] [address] * (ABNORMAL) Comprehensive metabolic panel (09/04/2025 8:26 AM CDT) Sodium 137 135 - 145 mmol/L [facility] ([place]) Potassium, pl 4.5 3.3 - 4.9 mmol/L [facility] ([place]) Chloride 103 97 - 110 mmol/L [facility] ([place]) CO2 21(L) 22 - 32 mmol/L [facility] ([place]) Anion gap 13 2 - 15 mmol/L [facility] ([place]) BUN 17 6 - 25 mg/dL [facility] ([place]) Creatinine 0.77(L) 0.80 - 1.30 mg/dL [facility] ([place]) Glucose 105 70 - 199 mg/dL [facility] ([place]) Comment: Interpretive Data Fasting glucose >/= 126 mg/dl is diagnostic for diabetes. Fasting is defined as no caloric intake for at least 8 hours. Fasting glucose between 100 mg/dl to 125 mg/dl is diagnostic of prediabetes. In a patient with classic symptoms of hyperglycemia or hyperglycemic crisis, a random glucose >/= 200 mg/dl is diagnostic for diabetes. In the absence of unequivocal hyperglycemia, results should be confirmed by repeat testing. The classification and Diagnosis of Diabetes Diabetes Care 2021; 46: S19-S40. Current interpretive data was last revised 2022. Calcium 10.1 8.5 - 10.3 mg/dL [facility] ([place]) Bilirubin, total 0.2 0.1 - 1.2 mg/dL [facility] ([place]) Protein, pl 7.2 6.5 - 8.5 g/dL [facility] ([place]) Albumin 4.6 3.5 - 5.0 g/dL [facility] ([place]) Alk phos 91 40 - 130 Units/L [facility] ([place]) ALT 26 7 - 55 Units/L [facility] ([place]) AST 22 10 - 50 Units/L [facility] ([place]) Blood 09/04/2025 8:26 AM CDT 09/04/2025 8:29 AM CDT Naty Yan MD LAB BLOOD ORDERABLES Amanda yu Result [facility] ([place]) 1 [facility] [place] [address] * ECG 12 lead (09/04/2025 8:21 AM CDT) 09/04/2025 8:21 AM CDT Narrative [facility] - 09/04/2025 8:55 AM CDT Vent Rate: 94 bpm RR Interval: 633 msec [place] Interval: 140 msec QRS Duration: 92 msec QT Interval: 321 msec QTC Interval: 373 msec P-R-T [place]: 10 - 84 - 15 degrees IMPRESSION: SINUS RHYTHM LOW QRS VOLTAGE IN PRECORDIAL LEADS [QRS DEFLECTION < 1.0 mV IN CHEST LEADS] BORDERLINE ECG NO CHANGE FROM PREVIOUS TRACING NOTED Electronically Signed By: Jarod Montilla MD us Naty Yan MD ECG ORDERABLES Final Res ult [facility] from Last 3 Months Insurance [facility] Care Teams Projector Operator Relationship Specialty Start Date End Date Yasmin Martinez NP [address] [place] [address] PCP - General Nurse Practitioner 09/14/24
== END 2025-10-01 09:28 | disposition home or self-care (01) ==
PROVIDERS: PCP Family Medicine; Visit Provider Internal Medicine Cardiovascular Disease
DX: R07.9 Chest pain, unspecified (principal); I10 Essential (primary) hypertension
CPT/HCPCS: 93017

== ENCOUNTER 2025-11-07 12:14 | Emergency (ER) | payer BC, SELFPAY ==
[2025-11-07 12:23] VITALS: BP 156/67; PULSE 101; RESP 20; TEMP 37.2; O2SAT 97
--- NOTE | 2025-11-07 12:48 | ED_ITS ---
HPI - URI/Sore Throat General Chief Complaint: Upper Respiratory Infection Stated Complaint: Nasal Congestion/Chest Congestion Time Seen by Provider: 11/07/25 12:45 Source: patient, RN notes reviewed and old records reviewed Mode of arrival: ambulatory Limitations: no limitations History of Present Illness HPI Narrative: 30 year old male with complaints of cough which is productive with sore throat and congestion for the past 2 days. Patient reports that he does have a history of asthma and he has daily maintenance and rescue inhaler. Patient reports that he has been coughing up greenish tingled phlegm and also some greenish nasal drainage. Patient reports no known fever does not have thermometer has felt flushed. Patient reports that he has taken DayQuil and used sinus rinse. MD elicited complaint: cough, sore throat and other (nasal and chest congestion) Pertinent past history: asthma Onset (ago): day(s) (2) Consistency: progressively worsening Pain scale (0-10): 6 Able to tolerate fluids by mouth: Yes Treatments prior to arrival: other (DayQuil and has done sinus rinses and used inhalers as ordered) Related Data Home Medications ?Medication ?Instructions ?Recorded ?Confirmed ?Last Taken ?Type albuterol sulfate 90 mcg/actuation inhalation 11/07/25 Unknown History aerosol inhaler Allergies Allergy/AdvReac Type Severity Reaction Status Date / Time No Known Drug Allergies Allergy Unknown Unknown Verified 11/07/25 12:34 Review of Systems Review of Systems: CONSTITUTIONAL: Reports malaise, no chills, sweats, or fever reports has felt flushed EYES: Denies visual changes, redness, or discharge. ENT: Reports rhinorrhea, congestion, sinus pain, no otalgia and + sore throat. CARDIOVASCULAR: Denies chest pain, palpitations, or edema. RESPIRATORY: Reports productive cough.? Denies dyspnea. GASTROINTESTINAL: Denies abdominal pain, nausea, vomiting, diarrhea SKIN: Denies rash or itching. MUSCULOSKELETAL: Denies myalgia. NEUROLOGIC: Denies headache. All systems reviewed & are unremarkable except as noted in HPI and below PMFSH Past Medical History Medical History Asthma Morbid obesity with BMI of 50.0-59.9, adult Hypertension Surgical History Surgical History Hx of tonsillectomy Family History Family History Grandparent Diabetes mellitus Acute myocardial infarction Family history of malignant neoplasm Mother Family history of bipolar disorder Social History Social History Smoking packs per day: 0.5 Smoking cigarettes per day: 10.0 Years smoked: 11 Smoking pack-years: 5.50 Smoking status: Former smoker Second hand tobacco smoke exposure: Yes Alcohol intake: never Substance use: current Substance use type: marijuana Lack of Transportation: No Lack of Food: Sometimes True Current Housing: I Do Not Have Housing Concerned About Future Housing: No Difficulty Paying Gas/Electric Bills: No Difficulty Paying for Meds: No Currently Unemployed: Decline to Answer Education: High School Diploma/GED Difficulty w/ Childcare or Family Care: No Living arrangements: with family Gender identity (if verbalized by the patient): Male Comments At time of signature, agree with nursing past medical, surgical, social and family history. There is no relevant family history pertinent to the presenting complaint Exam Narrative: GENERAL: Well-appearing, well-nourished,morbidly obese and in no acute distress. HEAD: Normocephalic EYES: PERRLA, conjunctivae clear ENT: Nares clear, turbinates edematous and erythematous, clear to greenish nasal discharge, sinus pressure. Mucous membranes moist. TM pearly avila with dull light reflex bilaterally; no tragal tenderness. Oropharynx erythematous without lesions. Tonsils not present and throat without exudate, no drooling, no hoarseness, no trismus, uvula midline.post nasal drainage NECK: Supple. No lymphadenopathy CHEST: Clear decreased to auscultation, breath sounds equal. No wheezing, rhonchi, rales, or stridor. No respiratory distress, speaks in full sentences productive cough with congestion no tachypnea noted SAO2 97% on room air. HEART: Regular rate and rhythm. No murmur heard. SKIN: Warm, dry, no rash. NEURO: Alert and oriented x3. PSYCH: Normal mood and affect Course Course Level of Care: [facility] Care Visit Vital Signs Vital signs: Vital Signs Temperature 37.2 C 11/07/25 12:23 Pulse Rate 101 H 11/07/25 12:23 Respiratory Rate 20 11/07/25 12:23 Blood Pressure 156/67 H 11/07/25 12:23 Pulse Oximetry 97 11/07/25 12:23 Oxygen Delivery Room Air 11/07/25 12:23 Temperature 37.2 C 11/07/25 12:23 Pulse Rate 101 H 11/07/25 12:23 Respiratory Rate 20 11/07/25 12:23 Blood Pressure 156/67 H 11/07/25 12:23 Pulse Oximetry 97 11/07/25 12:23 Oxygen Delivery Room Air 11/07/25 12:23 reviewed MDM MDM Narrative Medical decision making narrative: 30 year old male with complaints of sinus and chest congestion with increased cough for the past 2 days, Patient does have history of asthma. He reports using daily and rescue inhalers with minimal improvement in cough also sinus rinses and DayQuil for symproms.Will treat with steroids and antibiotic and re commendation of ORC medications for symptom control. Anticipatory guidance and reasons to seek care in ED reviewed with patient and spouse with understanding voiced. Differential Diagnosis Differential Diagnosis: Differential diagnostic considerations for upper respiratory infection include upper respiratory infection, croup, otitis media, sinusitis, viral infection, bronchitis, influenza, pharyngitis, strep, uvulitis, asthma exacerbation Lab Data [facility] Lab Attestation statement: I personally reviewed the patient's lab results. Lab results narrative: strep screen negative, culture sent, COVID antigen negative, Influenza A&B negative Labs: Lab Results 11/07/25 Range/Units 12:57 POC Influenza A Ag Negative (Negative) POC Influenza B Ag Negative (Negative) POC SARS CoV-2 Ag Negative (Negative) POC Grp A Strep Screen Negative (Negative) reviewed Critical Care Time Critical Care Time Critical Care Time: No Discharge Plan Discharge Clinical Impression: Acute cough Asthma exacerbation Qualifiers: Asthma severity: moderate Asthma persistence: persistent Qualified Code(s): J45.41 - Moderate persistent asthma with (acute) exacerbation Patient Disposition: Home Condition: Stable Instructions: Antibiotic Form, Bronchospasm (ED) Additional Instructions: Increase fluids especially juices and water Iiys-dia-jeplraz cough and cold medicine of your choice for your symptoms Zyrtec Claritin or Sweta daily include Coricidin brand decongestant Continue your inhaler/nebulizer as directed Steroids as directed--take with food heat to the face 20-30 minutes 4-6 times a day for pain Salt water gargles, throat lozenges or throat sprays as desired Antibiotic as directed--finished the medication If your symptoms persist, change or worsen significantly before you can contact your personal physician then please, without delay, go to the emergency department for further evaluation. Follow-up with PCP in 7-10 days or sooner if needed Follow up with PCP soon in regards to your blood pressure which is elevated abo ve threshold for referral. Blood pressure above 120/80 may indicate pre- hypertension. Patient Language: Samoan Prescriptions: New prednisone 20 mg tablet 40 mg PO DAILY 5 Days Qty: 10 0RF azithromycin 250 mg tablet See Rx Instructions .ROUTE .COMPLEX Qty: 6 0RF Rx Instructions: For 250 mg dose pack: take 500 mg today (day 1), then 250 mg for 4 days (days 2-5) No Action albuterol sulfate 90 mcg/actuation HFA aerosol inhaler INHALATION fluticasone propion-salmeterol [Advair HFA] 230-21 mcg/actuation HFA aerosol inhaler 2 puff inhalation BID Qty: 12 1RF lisinopril 20 mg tablet 20 mg PO DAILY Qty: 90 3RF Follow-up/Referrals: Pierce Duncan MD [Primary Care Provider, Family Practice] Stand Alone Forms: Work/School Release IP Time of Disposition: 13:11 Quality [place] Coma Scale Eyes: Open Verbal: Oriented and Alert Motor: Follows Commands [place] Coma Total Score: 15
[2025-11-07 13:00] LABS: EDCOVIDSCREEN Negative (Negative); EDINFLUASCREEN Negative (Negative); EDINFLUBSCREEN Negative (Negative); EDSTREPNEGPOS1 Negative (Negative)
== END 2025-11-07 13:20 | disposition home or self-care (01) ==
PROVIDERS: Emergency Provider Registered Nurse; PCP Family Medicine
DX: R05.1 Acute cough (principal); J45.41 Moderate persistent asthma with (acute) exacerbation; Z20.822 Contact with and (suspected) exposure to COVID-19; Z87.891 Personal history of nicotine dependence; F12.90 Cannabis use, unspecified, uncomplicated; I10 Essential (primary) hypertension; E66.01 Morbid (severe) obesity due to excess calories; Z68.43 Body mass index [BMI] 50.0-59.9, adult
CPT/HCPCS: 87081; 87426; 87804; 87880; 99213; G0463